=== PATIENT | female | born 1995 | race Caucasian/White ===

== ENCOUNTER 2016-06-29 17:27 | Emergency (ER) | payer BC, MEDICARE ==
[2016-06-29 18:49] LABS: HEMOGLOBIN 13.5 gm/dl (12.3-15.3); RED BLOOD COUNT 4.62 M/UL (4.00-5.10); WHITE BLOOD COUNT 7.1 K/UL (4.5-11.0)
[2016-06-29 19:11] LABS: BUN/CREATININE RATIO 14 (0-10)
== END 2016-06-29 21:50 | disposition home or self-care (01) ==
LOC: ER1 17:27
PROVIDERS: Student in an Organized Health Care Education/Training Program
DX: N10 Acute pyelonephritis (principal); R11.2 Nausea with vomiting, unspecified
CPT/HCPCS: 36415; 80053; 81001; 83690; 84703; 85025; 87086; 96361; 96374; 99284; J2405; J7030

== ENCOUNTER 2021-01-24 10:18 | Emergency (ER) | payer BC, MEDICARE ==
[~2021-01-24 10:18] MED LIST: BACTRIM DS TAB1 EACH PO; KEFLEX CAP 500500 MG PO; MACROBID 100 M100 MG PO; ZOFRAN 4 MG TAB4 MG PO; ZOFRAN4 MG PO
[2021-01-24 11:23] LABS: RED BLOOD COUNT 4.81 M/UL (4.00-5.10); WHITE BLOOD COUNT 7.5 K/UL (4.5-11.0)
[2021-01-24 11:41] LABS: BUN/CREATININE RATIO 11 (0-10)
[2021-01-24] MEDS ORDERED: PROTONIX40 MG PO (14:26)
[2021-01-24] MEDS ORDERED: CEFUROXIME500 MG PO (14:26)
[2021-01-24] MEDS ORDERED: ONDANSETRON ODT4 MG SL (14:26)
[2021-01-24] MEDS ORDERED: BENTYL 20MG TAB20 MG PO (14:26)
== END 2021-01-24 14:37 | disposition home or self-care (01) ==
LOC: ER1 10:18
PROVIDERS: Physician Assistant
DX: N39.0 Urinary tract infection, site not specified (principal); E86.0 Dehydration; E78.5 Hyperlipidemia, unspecified; R19.7 Diarrhea, unspecified; Z90.49 Acquired absence of other specified parts of digestive tract
CPT/HCPCS: 80053; 81001; 83690; 84703; 85025; 96374; 96375; 99284; C9113; J2405; J7030

== ENCOUNTER 2021-01-28 15:58 | Emergency (ER) | payer BC, MEDICARE ==
[~2021-01-28 15:58] MED LIST changes: +BENTYL 20MG TAB20 MG PO; +CEFUROXIME500 MG PO; +ONDANSETRON ODT4 MG SL; +PROTONIX40 MG PO
[2021-01-28 17:01] LABS: HEMOGLOBIN 13.6 gm/dl (12.3-15.3); RED BLOOD COUNT 4.67 M/UL (4.00-5.10); WHITE BLOOD COUNT 7.9 K/UL (4.5-11.0)
[2021-01-28 17:19] LABS: BUN/CREATININE RATIO 8 (0-10)
[2021-01-28] MEDS ORDERED: CYCLOBENZAPRINE10 MG PO (18:03)
[2021-01-28] MEDS ORDERED: IBUPROFEN800 MG PO (18:03)
== END 2021-01-28 18:12 | disposition home or self-care (01) ==
LOC: ER1 15:58
PROVIDERS: Physician Assistant
DX: M54.50 Low back pain, unspecified (principal); M54.6 Pain in thoracic spine; Z90.49 Acquired absence of other specified parts of digestive tract
CPT/HCPCS: 72100; 80053; 81001; 84703; 85025; 85652; 86140; 87086; 96374; 99283; J1885

== ENCOUNTER 2021-05-28 13:15 | Emergency (ER) | payer BC, MEDICARE ==
[~2021-05-28 13:15] MED LIST changes: +CYCLOBENZAPRINE10 MG PO; +IBUPROFEN800 MG PO
[2021-05-28 15:01] LABS: HEMOGLOBIN 13.2 gm/dl (12.3-15.3); RED BLOOD COUNT 4.57 M/UL (4.00-5.10); WHITE BLOOD COUNT 8.3 K/UL (4.5-11.0)
[2021-05-28 15:12] LABS: BUN/CREATININE RATIO 9 (0-10)
[2021-05-28] MEDS ORDERED: OMNICEF 300 MG300 MG PO (17:23)
[2021-05-28] MEDS ORDERED: ZOFRAN ODT 4 MG4 MG PO (17:23)
== END 2021-05-28 17:30 | disposition home or self-care (01) ==
LOC: ER1 13:15
PROVIDERS: Family Medicine
DX: R82.81 Pyuria (principal); R11.2 Nausea with vomiting, unspecified; R10.9 Unspecified abdominal pain
CPT/HCPCS: 80053; 81001; 83690; 84703; 85025; 96374; 96375; 99284; J1885; J2405